=== PATIENT | male | born 1970 | race African-American/Black ===

== ENCOUNTER 2025-05-20 09:36 | Emergency (ER) | payer MEDICAID ==
[~2025-05-20] VITALS: Ht 162.6 cm; Wt 62.0 kg
[2025-05-20 09:55] VITALS: O2SAT 95
[2025-05-20 10:01] VITALS: BP 133/78; PULSE 78; RESP 16; TEMP 37; O2SAT 98
[2025-05-20] MEDS ORDERED: AMOX1TAB16 MT (11:46)
== END 2025-05-20 11:54 | disposition home or self-care (01) ==
LOC: ER 09:36
DX: S41.051A Open bite of right shoulder, initial encounter (principal); I10 Essential (primary) hypertension; Z98.890 Other specified postprocedural states; Y04.1XXA Assault by human bite, initial encounter; Y93.89 Activity, other specified; Y92.89 Other specified places as the place of occurrence of the external cause; Y99.8 Other external cause status
CPT/HCPCS: 99283

== ENCOUNTER 2025-06-25 11:21 | Emergency (ER) | payer MEDICAID ==
[~2025-06-25] VITALS: Ht 162.6 cm; Wt 63.0 kg
[~2025-06-25 11:21] MED LIST: AMOX1TAB16 MT
[2025-06-25 11:22] VITALS: O2SAT 100
[2025-06-25] MEDS: ACETAMINOPHEN 325MG TABLET PO ONE (14:01)
[2025-06-25 14:30] VITALS: TEMP 36.7
[2025-06-25] MEDS: KETOROLAC 15MG/ML VIAL IV ONE (14:39)
[2025-06-25 14:59] LABS: BASOPHILS % 0.4 % (0.0-2.0); EOSINOPHILS % 0.7 % (0.0-5.0); HEMATOCRIT. 45.7 % (42.0-52.0); HEMOGLOBIN. 14.8 g/dL (14.0-18.0); LYMPHOCYTES % 33.4 % (20.0-50.0); MEAN PLATELET VOLUME 7.1 fl (7.4-10.4); MONOCYTES % 13.0 % (2.0-8.0); NEUTROPHILS % 52.5 % (40.0-76.0); PLATELET 263 x1000/uL (130-400); RED BLOOD CELL COUNT 5.32 mill/uL (4.7-6.1); RED CELL DISTRIBUTION WIDTH 15.3 % (11.6-14.6)
[2025-06-25 15:12] LABS: CREATININE 1.2 mg/dL (0.6-1.3)
[2025-06-25 15:13] LABS: UREA NITROGEN BLOOD 8 mg/dL (9-23)
[2025-06-25 15:15] LABS: ASPARTATE AMINOTRANSFERASE 18 IU/L (<34); BILIRUBIN DIRECT 0.2 mg/dL (<=3.0); BILIRUBIN TOTAL 0.9 mg/dL (0.1-1.0); INR 1.0; PROTEIN TOTAL 7.7 g/dL (6.0-8.3)
[2025-06-25] MEDS ORDERED: B50 MT (16:54)
[2025-06-25] MEDS ORDERED: IBUP-2029 MT (16:54)
[2025-06-25] MEDS ORDERED: LIDO700A30 TP (16:54)
[2025-06-25] MEDS ORDERED: ACYC200C31 MT (16:54)
[2025-06-25] MEDS ORDERED: METH-653 MT (16:55)
[2025-06-25 16:57] VITALS: BP 137/91; PULSE 63; RESP 16; O2SAT 100
[2025-06-25] MEDS ORDERED: IOHEXOL-300 100 ML BOTTLE ONE (23:26)
== END 2025-06-25 17:20 | disposition home or self-care (01) ==
LOC: ER 11:21
DX: B02.9 Zoster without complications (principal); F17.200 Nicotine dependence, unspecified, uncomplicated; F12.10 Cannabis abuse, uncomplicated; E78.00 Pure hypercholesterolemia, unspecified; I10 Essential (primary) hypertension; Z88.0 Allergy status to penicillin; Z79.899 Other long term (current) drug therapy
CPT/HCPCS: 99285; 74177; 96374; 80076; 80048; 83690; 85025; 85610; 85730; 86850; 86900; 86901; 36415; J1885; Q9967